=== PATIENT | female | born 1990 | race Caucasian/White ===

== ENCOUNTER 2017-06-10 17:17 | Emergency (ER) | payer SELFPAY ==
[~2017-06-10] VITALS: Ht 167.6 cm; Wt 61.2 kg
--- NOTE | 2017-06-10 18:28 | PD ---
HPI Chief Complaint Abnormal heart rate Travel History International Travel<30 Days: No Contact w/Intl Traveler<30Days: No Known Affected Area: No History of Present Illness HPI 26-year-old 041, IUP at 28.6 care uncomplicated per patient report The patient presents reporting and irregular heart rate that was first detected yesterday when she was evaluated by the structural design engineer at the [facility] office they described this as a "missed beat" and recommended an ultrasound, she went to try to have an ultrasound there are no appointments available until Friday. She was very nervous so she went back to the office again today and they told her the heart heartbeat wasn't consistent. So she presents here to the OB ED for further evaluation she denies any leaking of fluid or vaginal bleeding. She reports good movement. She denies any painful contractions or cramping. She has no other concerns today Weeks Gestation: 29 Para: 1 : 6 Allergies-Medications (Allergen,Severity, Reaction): Coded Allergies: No Known Allergies (Unverified , 06/10/17) Review of Systems Except as stated in HPI: all other systems reviewed are Neg Physical Exam Narrative GENERAL: Well-nourished, well-developed patient. SKIN: Warm and dry. HEAD: Normocephalic and atraumatic. EYES: No scleral icterus. No injection or drainage. ENT: No nasal drainage noted. Mucous membranes pink. Airway patent. NECK: Supple, trachea midline. No JVD. CARDIOVASCULAR: Regular rate and rhythm without murmurs, gallops, or rubs. RESPIRATORY: Breath sounds equal bilaterally. No accessory muscle use. BREASTS: Bilateral exam showed no masses , no retractions, no nipple discharge. ABDOMEN/GI: Abdomen soft, non-tender, bowel sounds present, no rebound, no guarding Gravid GENITOURINARY: Deferred FHT's: Baseline 130s to 140s with moderate long-term variability, no decelerations, and good accelerations noted. heart rate arrhythmia was initially notated upon arrival but appears to be somewhat intermittent. EXTREMITIES: No cyanosis or edema. BACK: Nontender without obvious deformity. No CVA tenderness. NEUROLOGICAL: Awake and alert. Motor and sensory grossly within normal limits. Five out of 5 muscle strength in all muscle groups. Normal speech. Musculoskeletal: Grossly normal R Serrano, gait, muscle strength Psychiatric: Grossly normal memory, affect. Patient is highly anxious Data Data Orders Orders Vital Signs (Adult) .ON ADMISSION (06/10/17 18:19) ^ Labor Status (06/10/17 18:19) ^ Non Stress Test (06/10/17 18:19) Diet Liquid (06/10/17 Dinner) Us Ob Limited (06/10/17 ) MDM Plan Assessment/plan: 1. IUP at 28.6 2. arrhythmia: Audible arrhythmia and noted but appears to be somewhat intermittent. Ultrasound did not show cardiac abnormalities however was not a echocardiogram. No other abnormalities were noted. Some PACs were noted on the ultrasound. NST was reactive. We will discharge home and repeat NST tomorrow, decision was made after lengthy discussion with patient who prefers not to stay in the hospital unless it is absolutely required; based on reassuring testing no indication for inpatient status at this time. 3. well-being: Reassuring testing with reassuring heart rate tracing is reactive for gestational age. FHR reactive and appropriate for gestational age. kick counts daily. 4. Follow up with primary OB in 2-3 days or sooner if needed 5. Follow-up with maternal- medicine as instructed. 6. Follow-up as above Diagnosis Diagnosis: Primary Impression: 28 weeks gestation of Disposition: 01 DISCHARGE HOME Condition: Good Patient Instructions: Movement (ED) Additional Instructions: F/U for repeat NST in 1d Shila Bentley MD Jun 10, 2017 18:28
--- NOTE | 2017-06-10 18:31 | PD ---
History of Present Illness History of Present Illness NST report Indications: IUP at 28.6, arrhythmia FHR baseline in the 130s to 140s with moderate long-term variability, good accelerations, no decelerations noted. The heart rate arrhythmia was initially audible, but appears to be somewhat intermittent. Follow-up: Follow-up for repeat NST in am, will refer to [facility] for echo Final diagnosis: IUP at 28.6, arrhythmia, no obvious abnormality noted on ultrasound but some PACs noted Shila Bentley MD Jun 10, 2017 18:31
== END 2017-06-10 20:32 | disposition home or self-care (01) ==
LOC: HOBED 17:17
DX: O36.8130 Decreased fetal movements, third trimester, not applicable or unspecified (principal); Z3A.28 28 weeks gestation of pregnancy
CPT/HCPCS: 76811

== ENCOUNTER 2017-06-11 08:58 | Emergency (ER) | payer SELFPAY ==
--- NOTE | 2017-06-11 09:28 | PD ---
HPI Chief Complaint Arrhythmia Date Seen: Jun 11, 2017 Travel History International Travel<30 Days: No Contact w/Intl Traveler<30Days: No History of Present Illness HPI Mrs. Ramos is a 26-year-old at 29/0 weeks gestation presenting to the OB ED from Princess Serrtao's office with a arrhythmia. Per patient and irregular heart rate was discovered yesterday during her clinic visit and described as a "missed beat. She was then referred to the OB ED, however the patient was "too nervous" to come to the hospital. She then was seen again by Princess Serrato yesterday, 06/10, and referred to the OB ED. She presented to the OB ED yesterday for further evaluation. NST report as below. Patient presents today for follow-up ultrasound with cardiac evaluation by OB [id number]. She endorses good movement and denies any loss of fluid, discharge, or vaginal bleeding. She has no other complaints and denies complete review of systems. NST report Indications: IUP at 28.6, arrhythmia FHR baseline in the 130s to 140s with moderate long-term variability, good accelerations, no decelerations noted. The heart rate arrhythmia was initially audible, but appears to be somewhat intermittent. Follow-up: Follow-up for repeat NST in am, will refer to [facility] for echo Final diagnosis: IUP at 28.6, arrhythmia, no obvious abnormality noted on ultrasound but some PACs noted Weeks Gestation: 29 Para: 6 : 1 History Past Medical History Narrative Medical None reported Obstetric History Obstetric History 041 Past Surgical History Surgical History: No Previous Surgery Family History Family History: Negative Social History Alcohol Use: No Tobacco Use: No Substance Abuse: No Allergies-Medications (Allergen,Severity, Reaction): Coded Allergies: No Known Allergies (Unverified , 06/10/17) Physical Exam Narrative GENERAL: Well-nourished, well-developed patient. SKIN: Warm and dry. HEAD: Normocephalic and atraumatic. EYES: No scleral icterus. No injection or drainage. ENT: No nasal drainage noted. Mucous membranes pink. Airway patent. NECK: Supple, trachea midline. No JVD. CARDIOVASCULAR: Regular rate and rhythm without murmurs, gallops, or rubs. RESPIRATORY: Breath sounds equal bilaterally. No accessory muscle use. ABDOMEN/GI: Abdomen soft, non-tender, bowel sounds present, no rebound, no guarding Gravid to 29 FHT's: Category: 1 Baseline: 130s Reactive: Positive Variability: Moderate Decels: None EXTREMITIES: No cyanosis or edema. BACK: Nontender without obvious deformity. No CVA tenderness. NEUROLOGICAL: Awake and alert. Motor and sensory grossly within normal limits. Five out of 5 muscle strength in all muscle groups. Normal speech. Data Data Vital Signs Reviewed: Yes Orders Orders Vital Signs (Adult) .ON ADMISSION (06/11/17 09:12) ^ Labor Status (06/11/17 09:12) ^ Non Stress Test (06/11/17 09:12) ^ Hydration (06/11/17 09:12) Us Ob Bpp Wo Nst (06/11/17 09:12) MDM Medical Record Reviewed: Yes Plan Mrs. Ramos is a 26-year-old at 29/0 weeks gestation presenting to the OB ED from Princess Serrato's office with a arrhythmia 1. IUP at 29 weeks -Continue routine antepartum care -Encourage vitamin -Encourage by mouth hydration - heart tracing category 1, reassuring, but with a irregular rhythm 2. arrhythmia -NST report as above -OB diagnostic ultrasound with echocardiogram ordered -Discussed report with [facility] for further recommendations SDW: Dr. Bentley Update: echocardiogram WNL without arrhythmia appreciated. [facility] recommends continued Doppler monitoring every 2 weeks for monitoring. Patient to be discharged home in stable condition. Also recommend no caffeine intake at this time. All questions answered. Patient to follow up with her global logistics analyst, Princess Serrato. SDW: Dr. Barbosa Diagnosis Diagnosis: Primary Impression: 29 weeks gestation of Additional Impression: arrhythmia affecting , antepartum Disposition: DISCHARGE HOME Condition: Stable Patient Instructions: General Instructions, Having Your Baby: The Labor Process (GEN) Felipe Perales MD R2 Jun 11, 2017 09:28
== END 2017-06-11 11:06 | disposition home or self-care (01) ==
LOC: HOBED 08:58
DX: O35.8XX0 Maternal care for other (suspected) fetal abnormality and damage, not applicable or unspecified (principal); Z3A.29 29 weeks gestation of pregnancy
CPT/HCPCS: 76825; 76827; 93325; 99284